=== PATIENT | female | born 1965 | race Caucasian/White ===

== ENCOUNTER 2021-05-15 10:49 | Emergency (ER) | payer OTHER ==
[2021-05-15 11:28] LABS: RED BLOOD COUNT 4.03 M/UL (4.00-5.10)
[2021-05-15 11:49] LABS: BUN/CREATININE RATIO 18 (0-10)
[2021-05-15] MEDS ORDERED: PERCOCET 5-3251 EACH PO (13:51)
[2021-05-15] MEDS ORDERED: PHENERGAN 25 MG25 M1 PO (13:51)
[2021-05-15] MEDS ORDERED: ZOFRAN ODT 4 MG4 MG PO (13:51)
== END 2021-05-15 14:05 | disposition home or self-care (01) ==
LOC: ER1 10:49
PROVIDERS: Family Medicine
DX: S42.252A Displaced fracture of greater tuberosity of left humerus, initial encounter for closed fracture (principal); R11.2 Nausea with vomiting, unspecified; W01.0XXA Fall on same level from slipping, tripping and stumbling without subsequent striking against object, initial encounter
CPT/HCPCS: 71045; 73030; 73060; 80053; 85025; 96374; 96375; 99284; J2405; J2550